=== PATIENT | male | born 1980 | race African-American/Black ===

== ENCOUNTER → 2017-01-15 | Outpatient (CLI) | payer BC ==
[~2017-01-15] MED LIST: DEXILANT60 MG PO; KLONOPIN PO; NO MEDICATIONS; ULTRAM PO
--- NOTE | ~2017-01-15 | CR229 ---
[facility]. [facility] A Service of [facility] RADIOLOGY TEXT RESULTS PATIENT: NASH KNIGHT LOCATION: [facility] : [birth year] UNIT #: [id number] AGE: [address]: Jg Russell MD SEX: M ORDER DR: [id number] [address] [address] [id number] O MR#: [id number] Acc #: [id number] NAME: NASH KNIGHT : 1980 SEX: M STUDY DATE/TIME: 01/15/2017 10:38 UNIT: [facility] ROOM: STUDY DESCRIPTION: CR Shoulder Min 2 View Lt Attending Physician: Jg Russell M.D. Referring Physician: Jg Russell M.D. Ordering Physician: Jg Russell M.D. Primary Care Physician: Jg Russell M.D. MEDICAL IMAGING REPORT This report is preliminary unless electronic signature is present. EXAM Left shoulder 3 views 01/15/2017. HISTORY Left shoulder pain radiating down arm to left wrist since August 2016. No known injury. FINDINGS AP view with internal and external rotation of the shoulder girdle shows satisfactory relationship of the humeral head and glenoid fossa. The joint space is normal. There is no identifiable fracture or dislocation or bony destructive process about the shoulder girdle anatomy. The acromioclavicular joint is normal. There is no radiopaque foreign body in the region. IMPRESSION Normal shoulder. Dictated by... Isidoro Hernandez M.D. THIS IS AN ELECTRONICALLY VERIFIED REPORT Isidoro Hernandez M.D. at 01/16/2017 2:10 PM DAKOTA/galen TD: 01/15/2017 15:38 JOB #: [id number] MEDICAL IMAGING REPORT Page 1 of 1
== END | disposition home or self-care (01) ==
LOC: SRAD 10:31
DX: M25.512 Pain in left shoulder (principal)
CPT/HCPCS: 73030